=== PATIENT | female | born 2000 | race Caucasian/White ===

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

== ENCOUNTER 2020-02-14 16:00 | Emergency (ER) | payer BC, OTHER ==
--- OUTSIDE RECORDS SUMMARY | 2020-02-14 16:02 | XMS REPORT | Summary of Care ---
:2000 Author Organization [facility] [employer] Address [address] [place] [address] Care Team Providers Name Role Phone 1, Adc Lab Unavailable Unavailable BRIAN Saldivar Primary Care Provider Reason for Visit Reason Comments Rx Concern/Question Encounter Details Date Type Department Care Team Description 12/16/2019 Telephone [facility]- Miranda Ruiz, Rx Concern/Question [facility] [address] [facility] [address] [place] [address] [address] [place] [address] [phone] Allergies Active Allergy Reactions Severity Noted Date Comments Hydrocodone Rash 11/07/2015 Penicillins Rash 11/07/2015 documented as of this encounter (statuses as of 12/16/2019) Medications Medication Sig Dispensed Refills Start Date End Date Status QUEtiapine (SEROQUEL XR) Take 300 mg by 0 Active 300 mg 24 hr tablet mouth daily. QUEtiapine (SEROQUEL) 50 Take 50 mg by 0 Active mg tablet mouth daily. lamoTRIgine 200 mg Take 200 mg by 0 Active tablet mouth daily. doxycycline 50 mg Take 50 mg by 0 Active capsule mouth daily. Biotin 5 mg Tab Take by mouth 0 Active daily. metroNIDAZOLE 500 mg Take 1 tablet by 14 tablet 0 09/24/2019 Active tabletIndications: BV mouth 2 (two) (bacterial vaginosis) times daily. documented as of this encounter (statuses as of 12/16/2019) Active Problems Problem Noted Date Vaginal discharge 09/23/2019 Other general counseling and advice for contraceptive management 09/23/[address] 02/26/2019 Breast tenderness 01/31/2019 Pain pelvic 01/31/2019 Urinary tract infection without hematuria 09/16/2018 Interstitial cystitis (chronic) with hematuria 018 Multiparity 07/06/2017 History of miscarriage 07/06/2017 History of anxiety 07/06/2017 Bipolar disorder in partial remission, most recent epi sode unspecified 06/09/2016 type documented as of this encounter (statuses as of 12/16/2019) Resolved Problems Problem Noted Date Resolved Date Bipolar disease during in first trimester 07/27/19 18 03/01/2018 Anxiety during in first trimester, antepartum 06/1503/01/2018 Supervision of high risk , antepartum 07/06/2017 03/01/2018 Contraceptive patch status 10/04/2016 07/06/2017 Dysuria 09/04/2016 07/06/2017 Gestational hypertension, third trimester 08/31/2016 09/04/2016 Normal labor and delivery 08/31/2016 09/02/2016 Elevated blood pressure affecting in third 017 09/04/2016 trimester, antepartum Back pain affecting in third trimester 08/02/2016 09/04/2016 Heartburn during , third trimester 07/07/2016 09/04/2016 High-risk , third trimester 06/23/2016 Psychological disorder during 06/23/2016 09/04/2016 Anemia of mother in , antepartum, third trimester 0 06/13/2016 09/04/2016 H/O cold sores 06/10/2016 07/06/2017 Susceptible to Varicella (non-immune), currently in 06/09/2016 07/06/2017 third trimester High-risk supervision, first trimester 02/09/2016 06/23/2016 Encounter for supervision of normal first in first 01/11/2016 06/23/2016 trimester Psychiatric diagnosis 01/11/2016 07/06/2017 documented as of this encounter (statuses as of 12/16/2019) Immunizations Name Administration Dates Next Due Influenza Virus Vaccine Quad .5 mL IM 6+ MO 01/31/2019 Influenza Virus Vaccine Quad IM 3+ YRS 01/11/2016 TDAP 06/09/2016 Varicella (varivax)(chicken pox) 11/03/2016, 10/04/2016 documented as of this encounter Social History Tobacco Use Types Packs/Day Years Used Date Current Some Day Smoker Cigarettes 0.25 3 Star jeannie: 03/01/2015 Smokeless Tobacco: Never Used Comments: 4 cigs a day Alcohol Use Drinks/Week oz/Week Comments Yes 2 Standard drinks or equivalent 2.0 social Sex Assigned at Date Recorded Not on file documented as of this encounter Last Filed Vital Signs Not on filedocumented in this encounter Miscellaneous Notes Telephone Encounter - Mario Henry RN - 12/16/2019 9:57 AM CDTCalled patient, advised macrobid sent by Dr. Recinos on 11/22/2019 to [facility] in . Call pharmacy. Patient verbalized understanding. MARIO HENRY RN 12/16/2019 9:58 AM Telephone Encounter - Cordelia Alcantar - 12/16/2019 9:45 AM CDTKendarci Gutierrez is a 19 year old female Patient states that she was suppose to have medication from [facility] called into pharmacy for UTI 2wks ago. Please contact at [phone] (home) documented in this encounter Plan of Treatment Health Maintenance Due Date Last Done Comments INFLUENZA VACCINE (#1) 2019 01/31/2019, 01/11/2016 Depression Screening 02/01/2020 01/31/2019 HPV VACCINES (1 - 2-dose 02/01/2020 Postpon ed from series) 2009 (Refu sed) WELL CARE VISIT: -02/01/2020 01/31/2019 YEARS (yearly) MENINGOCOCCAL B VACCINES (1 02/07/2020 Post poned from of 2 - Risk Bexsero 2-dose 01/15 (Refused) series) CHLAMYDIA SCREENING 09/22/2020 09/23/2019, 01/31/2019, 03/01/2018, Additional history exists PAP SMEAR 01/31/2022 01/31/2019 DTaP,Tdap,and Td Vaccines 06/09/2026 06/09/2016 (2 - Td) MENINGOCOCCAL VACCINE Aged Out No longer eligible based on patient 's age to complete this topic PNEUMOCOCCAL 0-64 YEARS Discontinued COMBINED SERIES documented as of this encounter Results Not on filedocumented in this encounter Insurance Payer Benefit Plan Subscriber ID Effective Dates Phone Address Type / Group BCBS OF [facility] [id number] 2019-[place] [phone] [address] PPO/POS [place] t [id number] [place] [address] documented as of this encounter Advance Directives Name Relationship Healthcare Agent Communication Relationship Lola Melvin Mother Health Care Agent
--- OUTSIDE RECORDS SUMMARY | 2020-02-14 16:03 | XMS REPORT | Continuity of Care Document ---
:2000 Author Organization [facility] t Address [address] [place] [address] Care Team Providers Name Role Phone Mihai Spivey Attending Clinician Problems This patient has no known problems. Allergies, Adverse Reactions, Alerts This patient has no known allergies or adverse reactions. Medications This patient has no known medications. Procedures This patient has no known procedures. Encounters Start End Encounter Admission Attending Care Care Encounter Source Date/Time Date/Time Type Type Clinicians Facility Department ID 2020-01-21 2020-01-21 Office DENICE Ruiz [id number] 16:07:33 16:42:42 Visit Miranda Holm CELERY WRAPPER [id number] [facility] [id number] MATERNAL [id number] & CHILD [address] [place] [address] Results This patient has no known results.
--- OUTSIDE RECORDS SUMMARY | 2020-02-14 16:03 | XMS REPORT | Summary of Care ---
:2000 Author Organization [facility] [employer] Address [address] [place] [address] Care Team Providers Name Role Phone 1, Adc Lab Unavailable Unavailable BRIAN Saldivar Primary Care Provider Reason for Visit Reason Comments Rx Concern/Question pharmacy does not have medic ation Encounter Details Date Type Department Care Team Description [facility]/Question LAZARUS Alvarenga (pharmacy does not [address] [facility] [place] [address] [facility] have medication) [place], [place] [phone] Allergies Active Allergy Reactions Severity Noted Date Comments Hydrocodone Rash 11/07/2015 Penicillins Rash 11/07/2015 documented as of this encounter (statuses as of 12/18/2019) Medications Medication Sig Dispensed Refills Start Date [...] as of this encounter (statuses as of 12/18/2019) Active Problems Problem Noted Date Vaginal discharge [...] as of this encounter (statuses as of 12/18/2019) Resolved Problems Problem Noted Date Resolved Date [...] as of this encounter (statuses as of 12/18/2019) Immunizations Name Administration Dates Next Due Influenza [...] this encounter Miscellaneous Notes Telephone Encounter - Darlene Burrell - 12/16/2019 4:45 PM CDTRavindrachristi Gutierrez is a 19 year old female Patient states she called [employer] [facility] and they still have not received prescription documented in this encounter Plan of Treatment [...] Phone Address Type / Group BCBS OF [facility] [id number] 2019-[place] [phone] [address] PPO/POS [place] t [id number] [place] [address] documented as of this encounter Advance Directives Name Relationship Healthcare Agent Communication Relationship Lola Melvin Mother Health Care Agent
--- OUTSIDE RECORDS SUMMARY | 2020-02-14 16:03 | XMS REPORT | Summary of Care ---
:2000 Author Organization [facility] [employer] Address [address] [place] [address] Care Team Providers Name Role Phone 1, Adc Lab Unavailable Unavailable BRIAN Saldivar Primary Care Provider Reason for Visit Reason Comments Assessment UTI for two weeks Encounter Details Date Type Department Care Team Description 12/04/2019 Telephone [facility] [employer] [facility] (UTI for LAZARUS Alvarenga two weeks) [address] [facility] [address] [place], [place] [phone] Allergies Active Allergy Reactions Severity Noted Date Comments Hydrocodone Rash 11/07/2015 Penicillins Rash 11/07/2015 documented as of this encounter (statuses as of 01/02/2020) Medications Medication Sig Dispensed Refills Start Date [...] as of this encounter (statuses as of 01/02/2020) Active Problems Problem Noted Date Vaginal discharge [...] as of this encounter (statuses as of 01/02/2020) Resolved Problems Problem Noted Date Resolved Date [...] as of this encounter (statuses as of 01/02/2020) Immunizations Name Administration Dates Next Due Influenza [...] this encounter Miscellaneous Notes Telephone Encounter - Jessica Velez RN - 01/02/2020 8:20 AM CDTThis is being sent to you as part of [facility] Chart Maintenance. The encounter has been open longer than72 hours . Encounter closed. Jessica HUNG RN- Nurse Clinician [facility] elephone Encounter - Jorje Turner MD - 12/04/2019 6:40 PM CDTWas prescribed nitrofurantoin and receipt from [facility] pharmacy. Jorje Turner MD 12/04/2019 6:41 PM elephone Encounter - Darlene Burrell - 12/04/2019 12:27 PM CDTRavindrachristi Gutierrez is a 19 year old female Patient states she's had a UTI for two weeks and had a Telehealth appointment but was not prescribedany medication. Requesting to speak to nurse documented in this encounter Plan of Treatment [...] Phone Address Type / Group BCBS OF [facility] [id number] 2019-[place] [phone] [address] PPO/POS [place] [id number] [place] [address] documented as of this encounter Advance Directives Name Relationship Healthcare Agent Communication Relationship Lola Melvin Mother Health Care Agent
--- OUTSIDE RECORDS SUMMARY | 2020-02-14 16:03 | XMS REPORT | Summary of Care ---
:2000 Author Organization [facility] Address [address] [place] [id number] Care Team Providers Name Role Phone 1, Adc Lab Unavailable Unavailable BRIAN Saldivar Primary Care Provider Reason for Visit Reason Onset Date Comments Results 01/11/2020 Information 01/11/2020 Encounter Details Date Type Department Care Team Description 01/11/2020 Nurse Triage [facility] Cait Garcia RN Results; Information [address] [place] [phone] Allergies Active Allergy Reactions Severity Noted Date Comments Hydrocodone Rash 11/07/2015 Penicillins Rash 11/07/2015 documented as of this encounter (statuses as of 01/11/2020) Medications Medication Sig Dispensed Refills Start Date [...] as of this encounter (statuses as of 01/11/2020) Active Problems Problem Noted Date Vaginal discharge [...] as of this encounter (statuses as of 01/11/2020) Resolved Problems Problem Noted Date Resolved Date Bipolar disease during in first trimester 07/27/1903/01/2018 Anxiety during in first trimester, antepartum 06/1503/01/2018 [...] as of this encounter (statuses as of 01/11/2020) Immunizations Name Administration Dates Next Due Influenza [...] Assigned at Date Recorded Not on file COVID-19 Exposure Response Date Recorded In the last month, have you been in contact with No / Unsure 01/09/2020 6:03 PM CDT someone who was confirmed or suspected to have Coronavirus / COVID-19? documented as of this encounter Last Filed Vital Signs Not on filedocumented in this encounter Miscellaneous Notes Telephone Encounter - Cait Garcia RN - 01/11/2020 11:53 AM [facility] Fabricio Gutierrez is a 19 year old female Per chart review, negative covid on 01/09/20 Call back to patient who asks why she was not prescribed antibiotics for the virus she has. Advisedshe is COVID negative and that we do not prescribe antibiotics for viruses such as a cold or the flubecause antibiotics do not work on viruses. Advised to continue home measures and call back if needed. Your COVID 19 testing results were negative. At this time, the COVID 19 virus was NOT found in your sample. Continue to protect yourself by wearing a facemask and washing your hands frequently. If youhave not had symptoms, you may return to work immediately. If you had symptoms, you may return to work or school when you are feeling better and have not had a fever for 24 hours or more without takingfever reducing medications such as acetaminophen or ibuprofen and are 10 days from your first symptoms. Wear a mask until it has been greater than 14 days from when your first symptoms appeared. If you are a [facility] or contract employee or student, please refer to this website for more information https: [email or web address]. If you feel you are not getting better, please call the Access Center at [phone] or toll free to schedule a telehealth visit or face to face visit with a provider. Most acute illnesses resolve within 7 days. Cait Garcia RN, BSN [facility] Access [facility] Triage Nurse Reason for Disposition General information question, no triage required and triager able to answer question Protocols used: INFORMATION ONLY [id number] elephone Encounter - Cait Garcia, RN - 01/11/2020 11:53 AM CDTRegarding: experiencing upper resp infection requesting advised neg covid 01-09- ----- Message from Mildred Hinojosa sent at 01/11/2020 11:52 AM CDT ----- Fabricio Gutierrez is a 19 year old female Thank you documented in this encounter Plan of Treatment [...] in this encounter Insurance Payer Benefit Plan / Subscriber ID Effective Dates Phone Addre ss Type Group [place] [id number] 2019-Present PPO/POS [facility] EMPLOYEE EMPLOYEE PLAN documented as of this encounter Advance Directives Name Relationship Healthcare Agent Communication Relationship Lola Melvin Mother Health Care Agent
--- OUTSIDE RECORDS SUMMARY | 2020-02-14 16:04 | XMS REPORT | Summary of Care ---
:2000 Author Organization [facility] [employer] Address [address] [place] [id number] Care Team Providers Name Role Phone 1, Adc Lab Unavailable Unavailable BRIAN Saldivar Primary Care Provider Reason for Visit Reason Comments GENETIC ENGINEER problem UTI Symps Encounter Details Date Type Department Care Team Description 01/21/2020 Office Visit [facility]- Miranda Ruiz Ot er general counseling and advice for contraceptive management (Primary Dx); Charles Holm DEVEN Nexplanon in place; [address] [facility] [address] UTI symptoms; [place] KEZIA A Dysuria; [place] [phone] Need for influenza vaccination [id number] Allergies Active Allergy Reactions Severity Noted Date Comments Hydrocodone Rash 11/07/2015 Penicillins Rash 11/07/2015 documented as of this encounter (statuses as of 01/22/2020) Medications Medication Sig Dispensed Refills Start Date [...] as of this encounter (statuses as of 01/22/2020) Active Problems Problem Noted Date Vaginal discharge [...] as of this encounter (statuses as of 01/22/2020) Resolved Problems Problem Noted Date Resolved Date [...] as of this encounter (statuses as of 01/22/2020) Immunizations Name Administration Dates Next Due Influenza Virus Vaccine Quad .5 mL IM 6+ MO 01/21/2020, 01/14 Influenza Virus Vaccine Quad IM 3+ YRS [...] been in contact with No / Unsure 01/21/2020 4:21 PM CDT someone who was confirmed or suspected to have Coronavirus / COVID-19? documented as of this encounter Last Filed Vital Signs Vital Sign Reading Time Taken Comments Blood Pressure 126/80 01/21/2020 4:21 PM CDT Pulse 94 01/21/2020 4:21 PM CDT Temperature 36.8 C (98.3 F) 01/21/2020 4:21 PM CDT Respiratory Rate 16 01/21/2020 4:21 PM CDT Oxygen Saturation - - Inhaled Oxygen Concentration - - Weight 69.6 kg (153 lb 7 oz) 01/21/2020 4:21 PM CDT Height 160 cm (5' 3") 01/21/2020 4:21 PM CDT Body Mass Index 27.18 01/21/2020 4:21 PM CDT documented in this encounter Progress Notes Miranda Ruiz, WHBELKISP - 01/21/2020 3:45 PM CDT Chief complaint: Chief Complaint Patient presents with GENETIC ENGINEER problem UTI Symps HPI: the patient is here today with reports of UTI symptoms for the past 3 weeks, she reports burning on urination and lower back discomfort. She reports she has been trying AZO otc which have providedher with some relief. She denies all other associated symptoms today. Histories OB History Para Term AB Living 3 1 1 2 1 SAB TAB Ectopic Multiple Live Births 0 1 0 0 1 # Outcome Date GA Lbr Jonny/2nd Weight Sex Delivery Anes PTL Lv 3 Term 09/01/16 40w0d 9 lb 5.2 oz (4.23 kg) M VAGINAL None SUSAN 2 AB 06/21/15 7w0d 1 TAB Obstetric Comments Had elective with D&C Past Medical History: Diagnosis Date in first trimester Anemia 2011 not on meds Anxiety [address] Morris Bipolar affective Bipolar affective 2013 Borderline personality disorder Depression 2011 Pt on meds Esophageal reflux Gestational hypertension, third trimester 08/31/2016 STD (sexually transmitted disease) Hx of Chlamydia Family History Problem Relation Age of Onset Hypertension Father Cancer Paternal Grandfather Lung Hypertension Maternal Grandmother Arthritis NoFHx Asthma NoFHx defects NoFHx Breast Cancer NoFHx Colon Cancer NoFHx Ovarian Cancer NoFHx Uterine Cancer NoFHx Depression NoFHx Diabetes NoFHx Genetic NoFHx Heart NoFHx High cholesterol NoFHx Mental retardation NoFHx Neurological NoFHx Osteoporosis NoFHx Psychiatry NoFHx Other - see comments NoFHx Family Status Relation Name Status Mo Alive Fa Alive PGFa (Not Specified) MGMo (Not Specified) NoFHx (Not Specified) Past Surgical History: Procedure Laterality Date DILATION AND CURETTAGE (SHX) DISTAL CLAVICAL RESECTION 11/22/2015 Open L Clavical Reduction / INJECT EPIDURAL ANEST,LUMB,CONTINOUS 09/01/2016 OBSTETRICAL CARE,VAG DELIV ONLY 09/01/2016 TONSILLECTOMY WITH ADENOIDECTOMY at age 6 Social History Socioeconomic History Marital status: Spouse name: Not on file Number of children: Not on file Years of education: GED Highest education level: Not on file Occupational History Occupation: Unemployed Social Needs Financial resource strain: Not on file Food insecurity Worry: Not on file Inability: Not on file Transportation needs Medical: Not on file Non-medical: Not on file Tobacco Use Smoking status: Current Some Day Smoker Packs/day: 0.25 Years: 3.00 Pack years: 0.75 Types: Cigarettes Start date: 03/01/2015 Smokeless tobacco: Never Used Tobacco comment: 4 cigs a day Substance and Sexual Activity Alcohol use: Yes Alcohol/week: 2.0 standard drinks Types: 2 Standard drinks or equivalent per week Comment: social Drug use: No Sexual activity: Yes Partners: Male control/protection: Injection Comment: last sexual intercourse 01/24/2019 Lifestyle Physical activity Days per week: Not on file Minutes per session: Not on file Stress: Not on file Relationships Social connections Talks on phone: Not on file Gets together: Not on file Attends catholic service: Not on file Active member of club or organization: Not on file Attends meetings of clubs or organizations: Not on file Relationship status: Not on file Intimate partner violence Fear of current or ex partner: Not on file Emotionally abused: Not on file Physically abused: Not on file Forced sexual activity: Not on file Other Topics Concern Service Not Asked Blood Transfusions Not Asked Caffeine Concern Not Asked Occupational Exposure Not Asked Hobby Hazards Not Asked Sleep Concern Not Asked Stress Concern Not Asked Weight Concern Not Asked Special Diet Not Asked Back Care Not Asked Exercise Not Asked Bike Helmet Not Asked Seat Belt Yes Self-Exams Not Asked Social History Narrative Denies domestic or physical violence within the home Oriental Orthodox Preference: None Cats in home: Advised NO LITTER BOX CONTACT WHILE Patient lives with grandma, patient feels safe at home. Social History Substance and Sexual Activity Sexual Activity Yes Partners: Male control/protection: Injection Comment: last sexual intercourse 01/24/2019 Labs No new labs, Labs are pending. and Urgent Care on 01/09/2020 Component Date Value POCT GP A STREP 01/09/2020 negative SARS-CoV-2 PCR 01/09/2020 Not Detected Radiology No new radiology. Allergies Fabricio is allergic to hydrocodone and pcn [penicillins]. Medications Fabricio has a current medication list which includes the following prescription(s): metronidazole, biotin, doxycycline hyclate, lamotrigine, quetiapine, and quetiapine. Review of Systems Constitutional: Negative. HENT: Negative. Eyes: Negative. Respiratory: Negative. Breasts: Negative. Cardiovascular: Negative. Gastrointestinal: Negative. Genitourinary: Positive for dysuria. Musculoskeletal: Positive for back pain. Skin: Negative. Neurological: Negative. Psychiatric/Behavioral: Negative. Endocrine: Endocrine negative BP 126/80 (BP Location: Right arm, Patient Position: Sitting, BP CUFF SIZE: Adult Medium) | Pulse 94 | Temp 36.8 C (98.3 F) (Oral) | Resp 16 | Ht 5' 3" (1.6 m) | Wt 153 lb 7 oz (69.6 kg) | BMI 27.18 kg/m Pregravid BMI: Could not be calculated Physical Exam Vitals reviewed. Constitutional: She is oriented to person, place, and time. She appears well- developed and well-nourished. Cardiovascular: Regular rate and rhythm. No peripheral edema present. Pulmonary/Chest: Normal inspiratory effort. Abdominal: Abdomen is soft. No mass palpated. No tenderness present. There is no hepatosplenomegaly,splenomegaly or hepatomegaly. There is no rigidity and no guarding. No hernia palpated or inspected. Neuro/Psychiatric: She has a normal mood and affect. She is oriented to person, place, and time. Bladder: Bladder has no fullness, no mass palpated and no tenderness. CVAT- negative Assessment/Plan Return to clinic in 1-2 weeks. for WWE or sooner as needed Other general counseling and advice for contraceptive management (primary encounter diagnosis) Nexplanon in place Comment: routine Plan: as needed mgmt UTI symptoms Comment: as ordered Plan: URINE CULTURE, GC & CHLAMYDIA AMPLIFIED ASSAY Dysuria Comment: reports Plan: POCT URINALYSIS W/O SPECIFIC GRAVITY Need for influenza vaccination Comment: as orderedd Plan: FLU VACC([id number]), 6+ MONTHS, IM, QUAD (FLUZONE/FLULAVAL/FLUARIX) This visit did not involve counseling and coordination that comprised more than 50% of the visit time. LAZARUS Morillo 01/21/2020 4:37 PM documented in this encounter Plan of Treatment Date Type Specialty Care Team Description 01/29/2020 Office Visit [facility] Ruiz [facility] [address], [place] [address] [phone] Name Type Priority Associated Diagnoses Date/Ti me URINE CULTURE LAB Routine UTI symptoms 01/21/2020 4: 32 PM CDT GC & CHLAMYDIA AMPLIFIED LAB Routine UTI symptoms 10/2019 4:35 PM CDT ASSAY Health Maintenance Due Date Last Done Comments Depression Screening 02/01/2020 01/31/2019 HPV VACCINES (1 - 2-dose 02/01/2020 Postpon ed from series) 2009 (Refu sed) MENINGOCOCCAL B VACCINES (1 02/07/2020 Post poned from of 2 - Risk Bexsero 2-dose 01/15 (Refused) series) CHLAMYDIA SCREENING 09/22/2020 09/23/2019, 01/31/2019, 03/01/2018, Additional history exists PAP SMEAR 01/31/2022 01/31/2019 DTaP,Tdap,and Td Vaccines 06/09/2026 06/09/2016 (2 - Td) INFLUENZA VACCINE Completed 01/21/2020, 01/31/2019, 01/11/2016 MENINGOCOCCAL VACCINE Aged Out No longer eligible based on patient 's age to complete this topic PNEUMOCOCCAL 0-64 YEARS Discontinued COMBINED SERIES documented as of this encounter Procedures Procedure Name Priority Date/Time Associated Diagnosis Comme nts FLU VACC Routine 01/21/2020 4:30 Need for influenza ([id number]), 6+ PM CDT vaccination MONTHS, IM, QUAD POCT URINALYSIS W/O Routine 01/21/2020 4:24 Dysuria Resu lts for this SPECIFIC GRAVITY PM CDT procedure a re in the results section. documented in this encounter Results POCT URINALYSIS W/O SPECIFIC GRAVITY (01/21/2020 4:24 PM CDT) Pathologist Sig nature POCT PH U 7 5 - 8 mg/dl POCT U LEUK EST Trace Negative - Negative POCT U NIT Neg Negative - Negative POCT U PROT Trace Negative - Negative POCT U GLU Neg Negative - Negative POCT U KETONE Small Negative - Negative POCT U BLD Neg Negative - Negative Specimen Urine - URINE, CLEAN CATCH documented in this encounter Visit Diagnoses Diagnosis Other general counseling and advice for contraceptive management - Primary Nexplanon in place Presence of subdermal contraceptive go ce UTI symptoms Dysuria Need for influenza vaccination Need for prophylactic vaccination and in oculation against influenza documented in this encounter Insurance Payer Benefit Plan / Subscriber ID Effective Dates Phone Addre ss Type Group BCBS [facility] [id number] 2019-Present PPO/POS [facility] EMPLOYEE EMPLOYEE PLAN documented as of this encounter Advance Directives Name Relationship Healthcare Agent Communication Relationship Lola Melvin Mother Health Care Agent
--- OUTSIDE RECORDS SUMMARY | 2020-02-14 16:04 | XMS REPORT | Summary of Care ---
:[address] 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 Symps Encounter Details Date Type Department Care Team Description 01/21/2020 Office Visit [facility]- Miranda Ruiz Ot er general counseling and advice for contraceptive management (Primary Dx); Charles Holm DEVEN Nexplanon in place; [address] [facility] [address] UTI symptoms; [place] KEZIA A Dysuria; [place] [phone] Need for influenza vaccination [id number] Allergies [...] Chief complaint: Chief Complaint 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 LAZARUS Morillo 01/21/2020 4:37 PM documented in this encounter Plan of Treatment Date Type Specialty Care Team Description 01/29/2020 Office Visit [facility] Ye Ruiz [facility] [address], [place] [address] [phone] Name Type Priority Associated Diagnoses Date/Ti me [...] VACC Routine 01/21/2020 4:30 Need for influenza ([id number]), 6+ PM CDT vaccination MONTHS, IM, QUAD [...] Dates Phone Addre ss Type Group BCBS [facility] [id number] 2019-Present PPO/POS [facility] EMPLOYEE EMPLOYEE PLAN documented as of this encounter Advance Directives Name Relationship Healthcare Agent Communication Relationship Lola Melvin Mother Health Care Agent
--- NOTE | 2020-02-14 17:47 | EDPHYS ---
Physician Documentation [facility] Name: Fabricio Melvin Age: 20 yrs Sex: Female : 2000 Arrival Date: 02/14/2020 Time: 16:04 Bed 19 Private MD: ED Physician Ross Carter HPI: 02/13 17:42 This 20 yrs old Female presents to ER via Ambulatory with complaints of hank dehydration, Vomiting. 17:42 The patient presents to the emergency department with nausea, vomiting, that is hnak intermittent. Onset: The symptoms/episode began/occurred this morning. Possible causes: etoh. The symptoms are aggravated by nothing. The symptoms are alleviated by nothing. Associated signs and symptoms: The patient has no apparent associated signs or symptoms. Severity of symptoms: At their worst the symptoms were. The patient has not experienced similar symptoms in the past. [employer]: 16:34 LMP 02/14/2020 iw Historical: - Allergies: 16:34 Hydrocodone-Acetaminophen; iw 16:34 PENICILLINS; iw - Home Meds: 16:34 Strattera oral oral [Active]; lamotrigine oral oral [Active]; Seroquel 300 mg Oral tab iw 2 times per day [Active]; Seroquel 100 mg Oral tab nightly [Active]; - PMHx: 16:34 Depression; iw - Immunization history:: Adult Immunizations up to date. - Social history:: Smoking status: Patient reports the use of cigarette tobacco products, smokes one-half pack cigarettes per day. - Family history:: not pertinent. ROS: 17:42 Constitutional: Negative for fever, chills, and weight loss, Eyes: Negative for injury, hank pain, redness, and discharge, ENT: Negative for injury, pain, and discharge, Neck: Negative for injury, pain, and swelling, Cardiovascular: Negative for chest pain, palpitations, and edema, Respiratory: Negative for shortness of breath, cough, wheezing, and pleuritic chest pain, Back: Negative for injury and pain, : Negative for injury, bleeding, discharge, and swelling, MS/Extremity: Negative for injury and deformity, Skin: Negative for injury, rash, and discoloration, Neuro: Negative for headache, weakness, numbness, tingling, and seizure, Psych: Negative for depression, anxiety, suicide ideation, homicidal ideation, and hallucinations, Allergy/Immunology: Negative for hives, rash, and allergies, Endocrine: Negative for neck swelling, polydipsia, polyuria, polyphagia, and marked weight changes, Hematologic/Lymphatic: Negative for swollen nodes, abnormal bleeding, and unusual bruising. 17:42 Abdomen/GI: Positive for abdominal pain, nausea and vomiting. Exam: 17:42 Constitutional: This is a well developed, well nourished patient who is awake, alert, hank and in no acute distress. Head/Face: Normocephalic, atraumatic. Eyes: Pupils equal round and reactive to light, extra-ocular motions intact. Lids and lashes normal. Conjunctiva and sclera are non-icteric and not injected. Cornea within normal limits. Periorbital areas with no swelling, redness, or edema. ENT: Nares patent. No nasal discharge, no septal abnormalities noted. Tympanic membranes are normal and external auditory canals are clear. Oropharynx with no redness, swelling, or masses, exudates, or evidence of obstruction, uvula midline. Mucous membranes moist. Neck: Trachea midline, no thyromegaly or masses palpated, and no cervical lymphadenopathy. Supple, full range of motion without nuchal rigidity, or vertebral point tenderness. No Meningismus. Chest/axilla: Normal chest wall appearance and motion. Nontender with no deformity. No lesions are appreciated. Cardiovascular: Regular rate and rhythm with a normal S1 and S2. No gallops, murmurs, or rubs. Normal PMI, no JVD. No pulse deficits. Respiratory: Lungs have equal breath sounds bilaterally, clear to auscultation and percussion. No rales, rhonchi or wheezes noted. No increased work of breathing, no retractions or nasal flaring. Abdomen/GI: Soft, non-tender, with normal bowel sounds. No distension or tympany. No guarding or rebound. No evidence of tenderness throughout. Back: No spinal tenderness. No costovertebral tenderness. Full range of motion. Skin: Warm, dry with normal turgor. Normal color with no rashes, no lesions, and no evidence of cellulitis. MS/ Extremity: Pulses equal, no cyanosis. Neurovascular intact. Full, normal range of motion. Neuro: Awake and alert, GCS 15, oriented to person, place, time, and situation. Cranial nerves II-XII grossly intact. Motor strength 5/5 in all extremities. Sensory grossly intact. Cerebellar exam normal. Normal gait. Psych: Awake, alert, with orientation to person, place and time. Behavior, mood, and affect are within normal limits. 17:48 Musculoskeletal/extremity: DVT Exam: No signs of deep vein thrombosis. no pain, no hank swelling, no tenderness, negative Homans' sign noted on exam, no appreciated bluish discoloration, no erythema, no increased warmth. Vital Signs: 16:32 BP 136 / 97; Pulse 88; Resp 16; Temp 98.9; Pulse Ox 99% on R/A; Weight 69.4 kg; Height iw 5 ft. 2 in. (157.48 cm); 18:10 BP 127 / 77 Supine; Pulse 78; jd3 18:10 BP 122 / 82 Sitting; Pulse 84; jd3 18:10 BP 132 / 87; Pulse 94; Resp 17 S; Pulse Ox 100% on R/A; jd3 16:32 Body Mass Index 27.98 (69.40 kg, 157.48 cm) iw MDM: 17:02 Patient medically screened. [facility] 17:45 Differential diagnosis: gastritis, gastroenteritis. Data reviewed: vital signs, nurses [facility] notes. Data interpreted: monitoring manager: not applicable for this patient encounter. Pulse oximetry: on room air is 99 %. Counseling: I had a detailed discussion with the patient and/or guardian regarding: the historical points, exam findings, and any diagnostic results supporting the discharge/admit diagnosis, the need for outpatient follow up, for definitive care, a family practitioner. 02/13 17:42 Order name: Urine Dipstick-Ancillary (obtain specimen); Complete Time: 18:10 [facility] 02/13 17:42 Order name: Urine Test (obtain specimen); Complete Time: 18:10 [facility] 02/13 17:42 Order name: Orthostatics; Complete Time: 18:10 [facility] 02/13 17:42 Order name: PO challenge; Complete Time: 18:10 [facility] Administered Medications: 17:53 Drug: Zofran (Ondansetron) 4 mg Route: PO; jd3 18:30 Follow up: Response: No adverse reaction jd3 Disposition: 02/14/20 17:47 Discharged to Home. Impression: Vomiting, Alcohol abuse with intoxication. - Condition is Stable. - Discharge Instructions: Nausea and Vomiting, Adult, Nausea and Vomiting, Adult, [id number]. - Prescriptions for Zofran 4 mg Oral Tablet - take 1 tablet by ORAL route every 12 hours As needed; 20 tablet. - Medication Reconciliation Form, Thank You Letter, Antibiotic Education, Prescription Opioid Use form. - Follow up: Private Physician; When: 2 - 3 days; Reason: Recheck today's complaints, Continuance of care, Re-evaluation by your physician. - Problem is new. - Symptoms have improved. Signatures: Ross Carter MD MD cha Williams, Irene RN Gui Murillo RN RN jd3 Corrections: (The following items were deleted from the chart) 18:30 17:47 02/14/2020 17:47 Discharged to Home. Impression: Vomiting; Alcohol abuse with jd3 intoxication. Condition is Stable. Forms are Medication Reconciliation Form, Thank You Letter, Antibiotic Education, Prescription Opioid Use. Follow up: Private Physician; When: 2 - 3 days; Reason: Recheck today's complaints, Continuance of care, Re-evaluation by your physician. Problem is new. Symptoms have improved. hank
--- NOTE | 2020-02-14 17:47 | ER ---
Nurse's Notes [facility] Name: Fabricio Melvin Age: 20 yrs Sex: Female : 2000 Arrival Date: 02/14/2020 Time: 16:04 Bed 19 Private MD: Diagnosis: Vomiting;Alcohol abuse with intoxication Presentation: 02/13 16:32 Chief complaint: Patient states: vomiting and diarrhea after going out last night, iw cannot tolerate fluids. Coronavirus screen: At this time, the client does not indicate any symptoms associated with coronavirus-19. Ebola Screen: Patient negative for fever greater than or equal to 101.5 degrees Fahrenheit, and additional compatible Ebola Virus Disease symptoms Patient denies exposure to infectious person. Patient denies travel to an Ebola-affected area in the 21 days before illness onset. No symptoms or risks identified at this time. Initial Sepsis Screen: Does the patient meet any 2 criteria? No. Patient's initial sepsis screen is negative. Does the patient have a suspected source of infection? No. Patient's initial sepsis screen is negative. Risk Assessment: Do you want to hurt yourself or someone else? Patient reports no desire to harm self or others. Onset of symptoms was February 14, 2020. 16:32 Method Of Arrival: Ambulatory iw 16:32 Acuity: FLACO 3 iw CRAS: 16:34 LMP 02/14/2020 iw Historical: - Allergies: 16:34 Hydrocodone-Acetaminophen; iw 16:34 PENICILLINS; iw - Home Meds: 16:34 Strattera oral oral [Active]; lamotrigine oral oral [Active]; Seroquel 300 mg Oral tab iw 2 times per day [Active]; Seroquel 100 mg Oral tab nightly [Active]; - PMHx: 16:34 Depression; iw - Immunization history:: Adult Immunizations up to date. - Social history:: Smoking status: Patient reports the use of cigarette tobacco products, smokes one-half pack cigarettes per day. - Family history:: not pertinent. Screenin:20 Abuse screen: Denies threats or abuse. Nutritional screening: No deficits noted. jd3 Tuberculosis screening: No symptoms or risk factors identified. Fall Risk Ambulatory Aid- None/Bed Rest/Nurse Assist (0 pts). Gait- Normal/Bed Rest/Wheelchair (0 pts) Mental Status- Oriented to own ability (0 pts). Total Restrepo Fall Scale indicates No Risk (0-24 pts). Assessment: 17:19 General: Appears in no apparent distress. uncomfortable, Behavior is calm, cooperative, jd3 appropriate for age. Pain: Complains of pain in abdomen Quality of pain is described as aching. Neuro: Level of Consciousness is awake, alert, obeys commands, Oriented to person, place, time, situation. Cardiovascular: Capillary refill < 3 seconds Patient's skin is warm and dry. Respiratory: Airway is patent Respiratory effort is even, unlabored, Respiratory pattern is regular, symmetrical, Denies cough, shortness of breath. GI: Abdomen is flat, non-distended, Bowel sounds present X 4 quads. Abd is soft and non tender X 4 quads. Reports nausea, vomiting. : No signs and/or symptoms were reported regarding the genitourinary system. EENT: No signs and/or symptoms were reported regarding the EENT system. Derm: Skin is intact, Skin is dry, Skin is normal, Skin temperature is warm. Musculoskeletal: Circulation, motion, and sensation intact. Range of motion: intact in all extremities. 17:54 Reassessment: discharge pending treatments. jd3 18:10 Reassessment: Patient appears in no apparent distress at this time. Patient and/or jd3 family updated on plan of care and expected duration. Pain level reassessed. Patient is alert, oriented x 3, equal unlabored respirations, skin warm/dry/pink. 18:28 Reassessment: Patient appears in no apparent distress at this time. Patient and/or jd3 family updated on plan of care and expected duration. Pain level reassessed. Patient is alert, oriented x 3, equal unlabored respirations, skin warm/dry/pink. pt able to tolerate PO fluids, pt reported understanding of discharge instructions. even and steady gait upon discharge. Patient states feeling better. Vital Signs: 16:32 BP 136 / 97; Pulse 88; Resp 16; Temp 98.9; Pulse Ox 99% on R/A; Weight 69.4 kg; Height iw 5 ft. 2 in. (157.48 cm); 18:10 BP 127 / 77 Supine; Pulse 78; jd3 18:10 BP 122 / 82 Sitting; Pulse 84; jd3 18:10 BP 132 / 87; Pulse 94; Resp 17 S; Pulse Ox 100% on R/A; jd3 16:32 Body Mass Index 27.98 (69.40 kg, 157.48 cm) ED Course: 16:04 Patient arrived in ED. as 16:33 Triage completed. iw 16:34 Arm band placed on. iw 17:02 Ross Carter MD is Attending Physician. hank 17:07 Gui Rosenberg, RN is Primary Nurse. jd3 17:20 Patient has correct armband on for positive identification. Bed in low position. Call jd3 light in reach. Side rails up X 1. Adult w/ patient. Pulse ox on. NIBP on. 18:29 No provider procedures requiring assistance completed. Patient did not have IV access jd3 during this emergency room visit. Administered Medications: 17:53 Drug: Zofran (Ondansetron) 4 mg Route: PO; jd3 18:30 Follow up: Response: No adverse reaction jd3 Outcome: 17:47 Discharge ordered by . hank 18:29 Discharged to home ambulatory, with friend. jd3 18:29 Condition: stable 18:29 Discharge instructions given to patient, Instructed on discharge instructions, follow up and referral plans. medication usage, Demonstrated understanding of instructions, follow-up care, medications, Prescriptions given X 1. 18:30 Patient left the ED. jd3 Signatures: Ross Carter MD MD cha Martinez, Amelia as Williams, Irene, RN RN Gui Rosenberg, CHARLIE RN jsandra
[2020-02-14] MEDS ORDERED: ONDANSETRON 4 MG (ODT) TAB ONE (18:05)
[2020-02-14 18:36] VITALS: TEMP 98.9
[2020-02-14 18:38] VITALS: BP 132/87; O2SAT 100
== END 2020-02-14 18:30 | disposition home or self-care (01) ==
LOC: ER 16:00
DX: F10.129 Alcohol abuse with intoxication, unspecified (principal); F32.9 Major depressive disorder, single episode, unspecified; F17.210 Nicotine dependence, cigarettes, uncomplicated
CPT/HCPCS: 99283